=== PATIENT | male | born 1945 | race Caucasian/White ===

== ENCOUNTER → 2018-04-02 17:22 | Outpatient (CLI) | payer OTHER, SELFPAY | PROVIDERS: PCP Internal Medicine; Visit Provider Urology | DX: R97.20 Elevated prostate specific antigen [PSA] (principal) | CPT/HCPCS: 36415; 84153 ==

== ENCOUNTER → 2019-10-30 09:32 | Outpatient (CLI) | payer MEDICARE, OTHER, SELFPAY ==
[2019-10-31 07:45] LABS: COVID19 Sendout Not Detected (Not Detect)
== END ==
PROVIDERS: PCP Internal Medicine; Visit Provider Registered Nurse
DX: Z01.812 Encounter for preprocedural laboratory examination (principal)
CPT/HCPCS: 87635

== ENCOUNTER → 2020-01-07 10:38 | Outpatient (CLI) | payer MEDICARE, OTHER, SELFPAY ==
[2020-01-08 06:43] LABS: COVID19 Sendout Not Detected (Not Detect)
== END ==
PROVIDERS: PCP Internal Medicine; Visit Provider Physician Assistant
DX: M79.10 Myalgia, unspecified site (principal); R51 Headache; R53.83 Other fatigue
CPT/HCPCS: 87635

== ENCOUNTER → 2022-05-05 09:18 | Outpatient (CLI) | payer MEDICARE, OTHER, SELFPAY ==
[2022-05-05 11:25] LABS: COVID19 -Nasal RAPID Negative (Negative)
== END ==
PROVIDERS: PCP Family Medicine; Visit Provider Surgery
DX: Z01.812 Encounter for preprocedural laboratory examination (principal); Z20.822 Contact with and (suspected) exposure to COVID-19
CPT/HCPCS: 87635; C9803

== ENCOUNTER 2022-05-06 08:40 | Day surgery (SDC) | payer MEDICARE, OTHER, SELFPAY ==
--- NOTE | 2022-05-06 | PATH_ITS ---
[facility] Accession Number: [id number] . 01 Material submitted: . PART A: colon - DESCENDING COLON POLYP SMALL X4 PART B: rectum - RECTAL POLYP X2 . 01 Diagnosis: A. Descending Colon, Small Polyp x4, Biopsies: Tubular adenomas. . B. Rectum, Polyp x2, Biopsies: Tubular adenomas. MRV 05/09/2022 1214 Local . 01 Electronically signed: . Nuria Ch MD, Pathologist NPI- [id number] . 01 Gross description: . A. Received in formalin, labeled with the patient's name, , and descending colon polyp small x4, and consists of six irregular prince soft tissue fragments ranging from 0.1 cm to 0.4 cm in greatest dimension. Submitted entirely in cassette A1. B. Received in formalin, labeled with the patient's name, , and rectal polyp x2, and consists of two irregular prince soft tissue fragments ranging from 0.4 cm to 0.5 cm in greatest dimension. Submitted entirely in cassette B1. ([id number]) /LUZ ELENA 05/07/20221921 Local . 01 Pathologist provided ICD-10: D12.4, D12.8 . 01 CPT . 993232, 832302 Specimen Comment: A courtesy copy of this report has been sent to [facility] Pathology Performed at: 01 [facility] [address] [place] [address] [address], [place], [place] [id number] MD Wily Siddiqi MD Phone: [phone]
[2022-05-06 09:05] VITALS: BMI 29.7
[2022-05-06 09:16] VITALS: BP 129/81; PULSE 86; RESP 18; TEMP 36.6; O2SAT 100
[2022-05-06] MEDS: LACTATED RINGERS 1,000 ML 42 ML IV (09:19)
--- NOTE | 2022-05-06 11:03 | PM.HP.1 ---
History of Present Illness History of Present Illness Chief complaint: [facility] [place] Narrative: Mr. Turner presents today for screening colonoscopy. His last colonoscopy was at [facility] about 5 or 6 years ago. He thinks there were some polyps and he believes it was a 5 year follow-up recommended. He has no family history of colon cancer no colon symptoms no diarrhea constipation problems with hemorrhoids or diverticula. Has had a bilateral inguinal hernia that was repaired laparoscopically and recurred once. He otherwise has no questions or concerns Patient History Family & Social History Social History: household members spouse Tobacco & Substance use: Smoking Status Never smoker alcohol intake frequency holiday/special occasion Substance Use Type does not use Meds Home Medications and Allergies Home Medications Medication Instructions Recorded Confirmed Type aspirin 81 mg tablet,delayed 81 mg PO QDAY ##0 05/16/11 05/06/22 History release sodium,potassium,mag sulfates 17.5 See Rx Instructions PO .COMPLEX 04/26/22 05/06/22 Rx gram-3.13 gram-1.6 gram oral soln #354 mL (Suprep Bowel Prep Kit) folic acid 1 mg tablet 1 mg PO DAILY 05/06/22 05/06/22 History meloxicam 15 mg tablet 15 mg PO DAILY 05/06/22 05/06/22 History methotrexate sodium 2.5 mg tablet 2.5 mg PO QWEEK 05/06/22 05/06/22 History omeprazole 20 mg capsule,delayed 20 mg PO DAILY 05/06/22 05/06/22 History release zolpidem 10 mg tablet 10 mg PO QPM 05/06/22 05/06/22 History Allergies Allergy/AdvReac Type Severity Reaction Status Date / Time Sulfa (Sulfonamide Allergy Unknown Verified 05/06/22 08:57 Antibiotics) [SULFA (SULFONAMIDE ANTIBIOTICS)] Exam Vital Signs (past 8 hours): - 05/06/22 09:16 Temperature 97.8 F Pulse Rate 86 Respiratory Rate 18 Blood Pressure 129/81 Pulse Oximetry 100 Oxygen Delivery Method Room Air Oxygen Delivery Method Room Air Const General: cooperative, healthy appearing and comfortable Orientation: alert, awake and oriented x3 HENMT Head: normal to inspection Resp Effort & Inspection: normal respiratory effort and able to speak in complete sentences Cardio Pulses: radial pulses present GI Palpation: soft and No tender Assessment & Plan Assessment and plan (1) Screening for colon cancer: Status: Acute (2) History of colon polyps: Status: Acute Assessment & Plan narrative: I discussed the risks benefits and alternatives of a screening colonoscopy with Mr. Turner. These risks in include but not limited to perforation of the colon and an incomplete colonoscopy requiring further workup. He understands these risks and would like to proceed today. Time Spent With Patient Critical Care time: I spent a total of [] minutes of critical care time on this patient's care today; this time is exclusive of procedural time.
--- NOTE | 2022-05-06 11:36 | SUR.PREOP ---
Patient in continued delay for start of procedure due to unavailability of provider . Apologized for delay . No needs voiced at this time.
[2022-05-06 12:26] VITALS: BP 94/57; PULSE 65; RESP 10; TEMP 36.2; O2SAT 96
[2022-05-06 12:30] VITALS: BP 94/61; PULSE 67; RESP 12; O2SAT 96
[2022-05-06 12:36] VITALS: BP 103/59; PULSE 76; RESP 18; O2SAT 97
[2022-05-06 12:40] VITALS: BP 133/79; PULSE 72; RESP 12; TEMP 36.6; O2SAT 98
--- NOTE | 2022-05-06 12:41 | P.OP.COLON_ITS ---
Procedure & Clinicians Study performed: Colonoscopy and biopsy Same procedure as scheduled: Yes Indications: Screening colonoscopy history of polyps. Surgeon: Lawanda Cárdensa Procedure Notes Procedure in detail: Patient was taken to the endoscopy suite and placed in a left lateral decubitus position a time-out was performed. Monitored anesthetic care was provided. Digital rectal exam was performed. And colonoscope was placed into the anal canal and advanced through to the cecum. A photograph was taken of the appendiceal orifice. The prep was good. Withdrawal time was 23 minute minutes including biopsy time. In the descending colon I came across 4 very small (less than 1 cm) closely located polyps. Each of these was biopsied with 1 or 2 bites of a biopsy forceps and sent in the same specimen jar. Again in the rectal region 2 additional small polyps were seen both of which were biopsied and sent together. There were a few scattered diverticula in the sigmoid colon. Patient tolerated the procedure well and went in good condition to the postoperative care unit. Specimen(s): other (1. Small descending colon polyps x4, 2. Rectal polyps x2) Impression: I encountered 6 small polyps in the left colon and rectum. These have been sent for biopsy. If any of them are coming back adenomatous then closer follow-up would be recommended for this number of polyps. Generally the range from 3-5 years is recommended. We will follow-up pathology reports for a final recommend ation.
[2022-05-06 12:47] VITALS: BP 131/72; PULSE 66; RESP 14; TEMP 36.4; O2SAT 98
== END 2022-05-06 12:58 | disposition home or self-care (01) ==
PROVIDERS: PCP Family Medicine; Referring Provider Surgery; Visit Provider Surgery
PROC: 0DJD8ZZ Inspection of Lower Intestinal Tract, Via Natural or Artificial Opening Endoscopic (ICD-10-PCS; CPT 45378; principal; 2022-05-06 09:45)
DX: Z12.11 Encounter for screening for malignant neoplasm of colon (principal); Z86.010 Personal history of colon polyps; K57.30 Diverticulosis of large intestine without perforation or abscess without bleeding; D12.4 Benign neoplasm of descending colon; D12.8 Benign neoplasm of rectum
CPT/HCPCS: 45380; J2704; J3010